=== PATIENT | male | born 1945 | race Caucasian/White ===

== ENCOUNTER 2016-12-07 07:25 | Day surgery (SDC) | payer MEDICARE ==
[~2016-12-07] VITALS: Ht 172.7 cm; Wt 74.8 kg
[~2016-12-07 07:25] MED LIST: ASPI-973 PO; ESOM40CA41 PO; LIP40 PO; MULT-1018 PO; Sodium Chloride LOK Flush 10 mL Syringe IV PRN; fentaNYL-PF 50 mCg/mL 2 mL Inj IVPUSH PRN
[2016-12-07 07:46] VITALS: BP 98/66; PULSE 84; RESP 16; O2SAT 98
[2016-12-07] MEDS ORDERED: LACT1CAP73 PO (07:48)
[2016-12-07] MEDS ORDERED: MAGN100T6 PO (07:49)
[2016-12-07] MEDS: 0.9% Sodium Chloride 1,000 ML IV SCH ×3 (07:55→08:43)
[2016-12-07 09:02] VITALS: BP 81/54; PULSE 74; RESP 12; O2SAT 93
[2016-12-07 09:12] VITALS: BP 93/66; PULSE 82; RESP 14; O2SAT 96
--- NOTE | 2016-12-07 09:37 | ENDO ---
[address] [address] ENDOSCOPY PROCEDURE PATIENT: JOESPH YEN : 1945 MR#: [id number] ADMIT: 12/07/2016 JOB ID: [id number] DATE: 12/07/2016 PREOPERATIVE DIAGNOSIS(ES): 1. Personal history of colon polyps. 2. Family history of colon cancer. POSTOPERATIVE DIAGNOSIS(ES): 1. Terminal ileum polyps. 2. Transverse colon polyp. 3. Pedunculated sigmoid colon polyp. 4. Small probable hyperplastic distal sigmoid polyp. OPERATION: Colonoscopy into terminal ileum with snare polypectomy with cautery x2, cold forceps polypectomy of terminal ileum and distal sigmoid colon. SURGEON: Vladimir Wren M.D. INDICATIONS: A 71-year-old man with a family history of colon cancer and a personal history of colon polyps. I did a colonoscopy on him a year ago. He had tubular adenomas. He also had a poor prep. After a three day prep, he returns today for another colonoscopy. FINDINGS: He had a good prep. The scope was advanced into the terminal ileum. There, he had multiple small polyps of the terminal ileal mucosa which likely are lymphoid aggregates but were biopsied. In the transverse colon, there was a 5 mm polyp identified and removed with a snare polypectomy and retrieved and submitted to Pathology. In the sigmoid colon, there was a pedunculated 1 cm polyp removed with snare polypectomy and submitted to Pathology, and lastly, there is in the distal sigmoid a very small hyperplastic appearing polyp that was removed with cold forceps. Retroflexed views of the rectum were normal. DESCRIPTION OF PROCEDURE: The procedure and sedation plan was discussed with the patient and nursing staff, and a procedural time-out was held. A digital rectal examination was performed. He received 5 mg of Versed and 100 mcg of fentanyl. The Olympus PCF H 180 AL video colonoscope was passed transanally, advanced into the terminal ileum, withdrawn over 14 minutes and 44 seconds with results and procedures as discussed above and obtaining retroflexed views of the rectum. IMPRESSION: 1. Multiple colon polyps. 2. Distal transverse colon polyps. RECOMMENDATIONS: We will call him with results of histology, but I anticipate a repeat colonoscopy in three years.
--- NOTE | 2016-12-08 17:04 | PATH ---
SURGICAL PATHOLOGY Attending Physician:Adriel Marie CASE STATUS: Signed Out PATIENT NAME: JOESPH YEN PID: [id number] : 1945 DATE COLLECTED:12/07/2016 15:16 SPECIMEN: 1: Colon, Polyp 2: Ileum, Biopsy 3: Colon, Polyp 4: Colon, Polyp CLINICAL HISTORY: 1). TRANSVERSE COLON POLYP 2). TERMINAL ILEUM POLYPS X3 3). SIGMOID POLYP X1 4). SIGMOID POLYPS #2 X2 FINAL DIAGNOSIS: 1.TRANSVERSE COLON, POLYP, POLYPECTOMY: TUBULAR ADENOMA. 2.TERMINAL ILEUM POLYPS, BIOPSIES: ILEAL MUCOSA WITH PROMINENT BENIGN LYMPHOID AGGREGATES. NEGATIVE FOR DYSPLASIA OR MALIGNANCY. 3.SIGMOID COLON POLYP, POLYPECTOMY: TUBULAR ADENOMA. 4.SIGMOID COLON POLYP #2, BIOPSY: HYPERPLASTIC POLYP. ICD10 D12.3 D12.5 GROSS DESCRIPTION: Received four formalin-filled containers, each labeled with the patient' s name. 1. Received in formalin, labeled with the patient' s name and "transverse colon polyp", are two fragments of franco, soft tissue ranging from 0.2 x 0.1 x 0.1 cm to 0.3 x 0.2 x 0.2 cm. The fragments are totally submitted in cassette 1A. 2. Received in formalin, labeled with the patient' s name and "TI polyps", are five fragments of franco, soft tissue ranging from 0.1 x 0.1 x 0.1 cm to 0.3 x 0.2 x 0.2 cm. The fragments are totally submitted in cassette 2A. 3. Received in formalin, labeled with the patient' s name and "sigmoid polyp", is one fragment of franco, soft tissue measuring 1.0 x 0.5 x 0.4 cm. The fragment is bisected and totally submitted in cassette 3A. 4. Received in formalin, labeled with the patient' s name and "sigmoid polyps", is one fragment of franco, soft tissue measuring 0.2 x 0.2 x 0.2 cm. The fragment is totally submitted in cassette 4A. ([id number]) MICRO DESCRIPTION: See diagnosis. ICD-9 CODES: CPT CODES: 1: 71722 2: 78145 3: 75269 4: 46084 Electronically Signed Out Anurag Rangel MD, Ph.D. [facility] [address], [place] [address] Technical component performed at [facility], [address], [place], [address]
== END 2016-12-07 23:59 | disposition home or self-care (01) ==
LOC: END 07:25
PROVIDERS: ATTEND Surgery
DX: Z12.11 Encounter for screening for malignant neoplasm of colon (principal); D12.3 Benign neoplasm of transverse colon; D12.5 Benign neoplasm of sigmoid colon; F17.210 Nicotine dependence, cigarettes, uncomplicated; Z86.010 Personal history of colon polyps; Z79.82 Long term (current) use of aspirin; Z79.899 Other long term (current) drug therapy
CPT/HCPCS: 45380; 45385; 99153; G0500; J2250; J3010; J7030